=== PATIENT | female | born 1965 | race Caucasian/White ===

== ENCOUNTER → 2022-03-22 07:58 | Outpatient (CLI) | payer OTHER, SELFPAY ==
--- NOTE | ~2022-03-22 | MR_ITS ---
EXAMINATION: MR ankle RT wo/w con DATE: 03/22/2022 08:54 INDICATION: Right ankle mass. TECHNIQUE: Magnetic resonance imaging (MRI) of the right ankle was performed without and with 15 mL M ultiHance intravenous contrast. COMPARISON: None. FINDINGS: Medial ankle ligaments: There are changes of prior sprain of the deltoid ligament characterized by thickening of the superfic ial component. The deep component of deltoid ligament is normal. Lateral ankle ligaments: The anterior and posterior talofibular ligaments, calcaneofibular ligament, and interim posterior tib iofibular ligaments are intact. Tendons: There is a partial tear of peroneus brevis tendon with associated a multiloculated ganglion cyst ashley uring 2.5 x 1.2 x 1.9 cm. Peroneus longus tendon is normal. The anterior and medial tendons and Achil les tendon are normal. Plantar fascia: There is thickening of central band of the plantar fascia, consistent with fasciitis. Bones/other: Bone alignment is normal. No fracture. The talar dome is normal. Fluid: There are small ankle and talonavicular joint effusions. IMPRESSION: 1. Partial tear of peroneus brevis tendon with associated multiloculated ganglion cyst measuring 2.5 x 1.2 x 1.9 cm correlating with the patient's area of concern. 2. Plantar fasciitis. Reviewed, dictated and finalized at location A. IMPRESSION: 1. Partial tear of peroneus brevis tendon with associated multiloculated gangli on cyst measuring 2.5 x 1.2 x 1.9 cm correlating with the patient's area of con cern. 2. Plantar fasciitis.
== END ==
PROVIDERS: PCP Internal Medicine; Visit Provider Student in an Organized Health Care Education/Training Program
DX: D49.2 Neoplasm of unspecified behavior of bone, soft tissue, and skin (principal); M72.2 Plantar fascial fibromatosis
CPT/HCPCS: 73723; A9577